=== PATIENT | female | born 1970 | race Caucasian/White ===

== ENCOUNTER 2018-11-07 16:47 | Emergency (ER) | payer OTHER ==
[~2018-11-07] VITALS: Ht 160 cm; Wt 63.0 kg
[~2018-11-07 16:47] MED LIST: ALBU90I INH; ALBU90OI INH; ALBU90OI61 INH; AMOCLA875 PO; AMOX500 PO; AZIT250 PO; Aspirin EC81 MG PO; Azithromycin250 MG PO; BACL10 PO; BENZ100A PO; CEPH500 PO; CIPR500 PO; CLIN300 PO; CLON1; CLON1 PO; CODACE30 PO; CYCL10 PO; DEXT30SU PO; DOXY100 PO; ESCI10; FLUO20 PO; HYDACE10B PO; HYDACE5 PO; IBUHYD PO; IBUP200 PO; IBUP800 PO; INSLIS75I SC; LEVFLO500 PO; LORA1 PO; MEDR10 PO; METF500 PO; MULVITMINE; NAPR500 PO; NEOPOLHCSU LEFTEAR; OXYACE5T PO; OXYC5 PO; PENVK500; PRED20 PO; PREG50 PO; PROACE100 PO; PROM25 PO; Prednisone20 MG PO; QUET25; ROPI.25 PO; RXCODACET PO; RXCYCL10 PO; RXOXYACE PO; RXPROACE PO; SILSUL1TC TOP; SULTRIDS PO; TRAM50 PO; TRAZ50; TRAZ50 PO; TRIA80TC TOP; [UNRECOGNIZED DRUG - REMARK]; [UNRECOGNIZED DRUG - REMARK] PO
[2018-11-07] MEDS ORDERED: Triamcinolone A15 GM TOP (17:33)
[2018-11-07] MEDS ORDERED: Prednisone20 MG PO (17:33)
[2018-11-07 17:50] LABS: Source, Urine Clean Catch
[2018-11-07 17:54] LABS: Bilirubin, Urine Neg (Neg); Blood, Urine Neg (Neg); Glucose Qualitative, Urine Neg (Neg); Ketones, Urine Neg (Neg); Leukocyte Esterase, Urine 1+ (Neg); Nitrite, Urine Neg (Neg); Protein, Urine Neg (Neg); Urobilinogen, Urine NORM (Normal)
[2018-11-07 18:28] LABS: Appearance, Urine Clear (Clear); Color, Urine Yellow (P-Yellow)
[2018-11-07 18:33] LABS: Bacteria Rare /hpf; Mucus Light (0-Heavy); Red Blood Cells, Urine Rare /hpf (0-2); Squamous Epithelial Cells Mod /hpf (Few)
== END 2018-11-07 18:38 | disposition home or self-care (01) ==
LOC: ER 16:47
PROVIDERS: Physician Assistant
DX: L25.9 Unspecified contact dermatitis, unspecified cause (principal); J20.9 Acute bronchitis, unspecified; M25.552 Pain in left hip; Z79.84 Long term (current) use of oral hypoglycemic drugs; Z79.82 Long term (current) use of aspirin; Z79.899 Other long term (current) drug therapy; Z79.52 Long term (current) use of systemic steroids; F20.9 Schizophrenia, unspecified; E11.9 Type 2 diabetes mellitus without complications; F17.210 Nicotine dependence, cigarettes, uncomplicated
CPT/HCPCS: 81001; 87086; 99283; J1100

== ENCOUNTER 2019-01-04 11:46 | Emergency (ER) | payer OTHER ==
[~2019-01-04] VITALS: Ht 160 cm; Wt 73.0 kg
[~2019-01-04 11:46] MED LIST changes: +Triamcinolone A15 GM TOP
[2019-01-04] MEDS ORDERED: FLUO10 PO (12:13)
[2019-01-04] MEDS ORDERED: LIDO700A20 TOP (13:21)
[2019-01-04] MEDS ORDERED: NAPR550 PO (13:21)
[2019-01-04] MEDS ORDERED: Robaxin500 MG PO (13:21)
== END 2019-01-04 13:35 | disposition home or self-care (01) ==
LOC: ER 11:46
DX: M62.830 Muscle spasm of back (principal); Z79.899 Other long term (current) drug therapy; Z79.84 Long term (current) use of oral hypoglycemic drugs; Z79.52 Long term (current) use of systemic steroids; E11.9 Type 2 diabetes mellitus without complications; F17.210 Nicotine dependence, cigarettes, uncomplicated
CPT/HCPCS: 99282

== ENCOUNTER 2019-05-23 15:51 | Emergency (ER) | payer OTHER ==
[~2019-05-23] VITALS: Ht 157.5 cm; Wt 79.4 kg
[~2019-05-23 15:51] MED LIST changes: +FLUO10 PO; +LIDO700A20 TOP; +NAPR550 PO; +Robaxin500 MG PO
[2019-05-23] MEDS ORDERED: Ultram50 MG PO (16:42)
[2019-05-23] MEDS ORDERED: CYCL10 PO (16:42)
== END 2019-05-23 16:50 | disposition home or self-care (01) ==
LOC: ER 15:51
DX: M25.552 Pain in left hip (principal); F20.9 Schizophrenia, unspecified; E11.9 Type 2 diabetes mellitus without complications; F17.210 Nicotine dependence, cigarettes, uncomplicated; Z79.899 Other long term (current) drug therapy; Z79.84 Long term (current) use of oral hypoglycemic drugs; Z79.82 Long term (current) use of aspirin; Z79.52 Long term (current) use of systemic steroids
CPT/HCPCS: 73502; 96372; 99283-25; J1885

== ENCOUNTER 2019-06-23 19:22 | Emergency (ER) | payer OTHER ==
[~2019-06-23] VITALS: Ht 160 cm; Wt 74.4 kg
[~2019-06-23 19:22] MED LIST changes: +Ultram50 MG PO
[2019-06-23] MEDS ORDERED: Prednisone20 MG PO (21:03)
[2019-06-23] MEDS ORDERED: BENZ100A PO (21:16)
== END 2019-06-23 22:11 | disposition home or self-care (01) ==
LOC: ER 19:22
DX: R05 Cough (principal); R06.2 Wheezing; F20.9 Schizophrenia, unspecified; F17.210 Nicotine dependence, cigarettes, uncomplicated; Z79.899 Other long term (current) drug therapy; Z79.84 Long term (current) use of oral hypoglycemic drugs; Z79.82 Long term (current) use of aspirin
CPT/HCPCS: 71046; 94640; 99283-25; J7512

== ENCOUNTER 2019-06-27 16:45 | Emergency (ER) | payer OTHER ==
[~2019-06-27] VITALS: Ht 160 cm; Wt 73.5 kg
[2019-06-27] MEDS ORDERED: CODEINE-GUAIFE120 ML PO (17:22)
[2019-06-27] MEDS ORDERED: BENZ100A PO (17:22)
== END 2019-06-27 17:40 | disposition home or self-care (01) ==
LOC: ER 16:45
DX: J44.9 Chronic obstructive pulmonary disease, unspecified (principal); E11.9 Type 2 diabetes mellitus without complications; F20.9 Schizophrenia, unspecified; F17.210 Nicotine dependence, cigarettes, uncomplicated; Z79.899 Other long term (current) drug therapy; Z79.84 Long term (current) use of oral hypoglycemic drugs; Z79.82 Long term (current) use of aspirin; Z79.52 Long term (current) use of systemic steroids
CPT/HCPCS: 99283

== ENCOUNTER 2019-08-04 15:37 | Emergency (ER) | payer OTHER ==
[~2019-08-04] VITALS: Ht 160 cm; Wt 78.0 kg
[~2019-08-04 15:37] MED LIST changes: +CODEINE-GUAIFE120 ML PO
[2019-08-04] MEDS ORDERED: Naprosyn500 MG PO (16:22)
== END 2019-08-04 16:28 | disposition home or self-care (01) ==
LOC: ER 15:37
DX: S39.012A Strain of muscle, fascia and tendon of lower back, initial encounter (principal); E11.9 Type 2 diabetes mellitus without complications; F20.9 Schizophrenia, unspecified; F17.210 Nicotine dependence, cigarettes, uncomplicated; Z79.899 Other long term (current) drug therapy; Z79.84 Long term (current) use of oral hypoglycemic drugs; Z79.82 Long term (current) use of aspirin; X50.0XXA Overexertion from strenuous movement or load, initial encounter
CPT/HCPCS: 99283

== ENCOUNTER 2019-12-07 09:44 | Emergency (ER) | payer OTHER ==
[~2019-12-07] VITALS: Ht 160 cm; Wt 71.7 kg
[~2019-12-07 09:44] MED LIST changes: +Naprosyn500 MG PO
[2019-12-07 10:44] LABS: Source, Urine Clean Catch
[2019-12-07 10:57] LABS: Bilirubin, Urine Neg (Neg); Blood, Urine Neg (Neg); Glucose Qualitative, Urine Neg (Neg); Ketones, Urine Neg (Neg); Leukocyte Esterase, Urine 2+ (Neg); Nitrite, Urine Neg (Neg); Protein, Urine Neg (Neg); Urobilinogen, Urine NORM (Normal)
[2019-12-07 11:14] LABS: Appearance, Urine Clear (Clear); Color, Urine Yellow (P-Yellow)
[2019-12-07 11:21] LABS: Red Blood Cells, Urine 0-2 /hpf (0-2)
[2019-12-07 11:22] LABS: Bacteria Mod /hpf; Squamous Epithelial Cells Mod /hpf (Few); Trichomonas Few /hpf
[2019-12-07 12:28] LABS: Candida species (DNA Probe) Negative (NEGATIVE); G. vaginalis (DNA Probe) Positive (NEGATIVE); T. vaginalis (DNA Probe) Positive (NEGATIVE)
[2019-12-09 02:08] LABS: CHLAMYDIA TRACHOMATIS, NAA Negative (Negative); NEISSERIA GONORRHOEAE, NAA Negative (Negative)
== END 2019-12-07 12:25 | disposition home or self-care (01) ==
LOC: ER 09:44
PROVIDERS: Physician Assistant
DX: N76.0 Acute vaginitis (principal); F20.9 Schizophrenia, unspecified; E11.9 Type 2 diabetes mellitus without complications; F17.210 Nicotine dependence, cigarettes, uncomplicated; G25.81 Restless legs syndrome; Z79.84 Long term (current) use of oral hypoglycemic drugs; Z79.899 Other long term (current) drug therapy
CPT/HCPCS: 81001; 81025; 87086; 87480; 87491; 87510; 87591; 87660; 96372; 99283-25; J0696

== ENCOUNTER → 2020-06-24 | Outpatient (CLI) | payer OTHER ==
[~2020-06-24] MED LIST changes: +Flagyl500 MG PO
== END | disposition home or self-care (01) ==
LOC: LAB SHORT 19:52 → LAB 19:52
DX: N39.0 Urinary tract infection, site not specified (principal)
CPT/HCPCS: 87077; 87086; 87186

== ENCOUNTER → 2021-02-22 | Outpatient (CLI) | payer OTHER ==
[2021-02-24 04:09] LABS: CHLAMYDIA TRACHOMATIS, NAA Negative (Negative)
== END | disposition home or self-care (01) ==
LOC: LAB 14:18 → LAB SHORT 14:18
PROVIDERS: Physician Assistant
DX: L29.3 Anogenital pruritus, unspecified (principal)
CPT/HCPCS: 87070; 87086; 87205; 87491; 87591

== ENCOUNTER → 2022-04-16 | Outpatient (CLI) | payer OTHER | END | disposition home or self-care (01) | LOC: LAB SHORT 11:39 → LAB 11:39 | DX: R30.0 Dysuria (principal) | CPT/HCPCS: 87086 ==

== ENCOUNTER 2022-11-18 07:20 | Emergency (ER) | payer OTHER ==
[~2022-11-18] VITALS: Ht 152.4 cm; Wt 54.4 kg
[2022-11-18 07:58] LABS: Base Excess Venous 3.1 mmol/L; Bicarbonate Venous 26.4 mmol/L (24.0-30.0); PCO2 Venous 46.6 mmHg (38-42); pH Blood Venous 7.39 (7.34-7.37)
[2022-11-18 08:07] LABS: BASOPHILS ABSOLUTE AUTO 0.01 K/mm3 (0.00-0.23); BASOPHILS PERCENT AUTO 0 % (0-2); EOSINOPHILS PERCENT AUTO 0 % (0-6); Hematocrit 42.2 % (33.0-51.0); Hemoglobin 14.3 g/dL (11.5-16.0); IMMATURE GRAN ABSOLUTE AUTO 0.02 K/mm3 (0.00-0.10); IMMATURE GRAN PERCENT AUTO 0 % (0-1); LYMPHOCYTES ABSOLUTE AUTO 0.68 K/mm3 (0.84-5.20); LYMPHOCYTES PERCENT AUTO 15 % (21-46); MONOCYTES ABSOLUTE AUTO 0.42 K/mm3 (0.16-1.47); MONOCYTES PERCENT AUTO 9 % (4-13); Mean Corpuscular HGB 27.7 pg (26.0-34.0); Mean Corpuscular HGB Conc 33.9 g/dL (31.5-36.5); Mean Corpuscular Volume 82 fL (80-100); Mean Platelet Volume 11.4 fL (9.1-12.4); NEUTROPHILS ABSOLUTE AUTO 3.46 K/mm3 (1.96-9.15); NEUTROPHILS PERCENT AUTO 75 % (41-73); Platelet Count 146 K/mm3 (150-400); RDW Coefficient Variation 13.1 % (11.7-14.2); RDW Standard Deviation 39.1 fL (35.1-46.3); Red Blood Cell Count 5.17 M/mm3 (3.80-5.20); White Blood Cell Count 4.59 K/mm3 (4.00-11.30)
[2022-11-18 08:19] LABS: Influenza B, PCR NEGATIVE (NEGATIVE); Resp Syncytial Virus, PCR NEGATIVE (NEGATIVE); SARS-Cov-2 (COVID-19) PCR, MMC NEGATIVE (NEGATIVE)
[2022-11-18 08:26] LABS: Influenza A, PCR POSITIVE (NEGATIVE)
[2022-11-18 08:36] LABS: Albumin, Blood 3.2 g/dL (3.4-5.0); Albumin/Globulin Ratio 0.7 (0.8-1.8); Bilirubin, Total 0.5 mg/dL (0.1-1.0); Bun/Creatinine Ratio 27.1 (12.0-20.0); Calcium, Blood 8.9 mg/dL (8.5-10.1); Creatinine, Blood 0.66 mg/dL (0.40-1.00); Globulin, Blood 4.3 g/dL (2.2-4.0); Potassium, Blood 4.4 mmol/L (3.5-5.5); Total Protein, Blood 7.5 g/dL (6.4-8.2)
== END 2022-11-18 10:31 | disposition home or self-care (01) ==
LOC: ER 07:20
PROVIDERS: Emergency Medicine
DX: J10.1 Influenza due to other identified influenza virus with other respiratory manifestations (principal); Z79.899 Other long term (current) drug therapy; Z79.84 Long term (current) use of oral hypoglycemic drugs; Z79.52 Long term (current) use of systemic steroids; E11.9 Type 2 diabetes mellitus without complications; F17.210 Nicotine dependence, cigarettes, uncomplicated
CPT/HCPCS: 0241U; 71045; 80053; 82803; 83690; 84484; 85025; A9270